=== PATIENT | female | born 1985 | race Caucasian/White ===

== ENCOUNTER 2020-08-09 14:05 | Emergency (ER) | payer SELFPAY ==
[~2020-08-09] VITALS: Ht 160 cm; Wt 70.5 kg
[2020-08-09 14:10] VITALS: Ht 160 cm; Wt 70.5 kg
[2020-08-09 14:46] LABS: CALC OSMOLALITY 278 mosm/kg (275-300); CALCIUM 8.5 mg/dL (8.5-10.1); CARBON DIOXIDE 25.5 mmol/L (21.0-32.0); CHLORIDE - SERUM 106 mmol/L (98-107); CREATININE - SERUM 0.7 mg/dL (0.6-1.3); GLUCOSE 83 mg/dL (74-106); POTASSIUM - SERUM 3.2 mmol/L (3.5-5.1); SODIUM 141 mmol/L (136-145); UREA NITROGEN 9 mg/dL (7-18); eGFR NON AFRICAN AMERICAN > 90 mL/min (90-120)
[2020-08-09 14:48] LABS: BASOPHILS 0.6 % (0-2); EOSINOPHILS 2.1 % (0-7); HEMATOCRIT 27.7 % (36.0-48.0); HEMOGLOBIN 8.2 g/dL (12-16); LYMPHOCYTES 22.6 % (15-50); MCHC 29.4 g/dL (31.0-37.0); MCV 65.7 fL (80.0-100.0); MEAN PLATELET VOLUME 7.6 fL (7.4-10.4); MONOCYTES 10.2 % (2-11); NEUTROPHILS 64.5 % (40-80); PLATELET COUNT 406 10x3/uL (130-400); RBC 4.22 10x6/uL (4.00-5.40); RDW 20.6 % (11.5-14.5); WBC 8.4 10x3/uL (4.8-10.8)
[2020-08-09 14:55] LABS: BACTERIA MANY HPF (<MOD); BILIRUBIN NEGATIVE (NEGATIVE); KETONE NEGATIVE mg/dL (< 1+); NITRITE NEGATIVE (NEGATIVE); PH 5.5 (5.0-8.0); SQUAMOUS EPITHELIAL 2 HPF (0-4); UROBILINOGEN NORMAL mg/dL (< 2); WHITE CELLS - URINE 6 HPF (0-4)
[2020-08-09 14:56] LABS: ALBUMIN 3.5 g/dL (3.4-5.0); ALKALINE PHOSPHATASE 73 U/L (30-120); ALT (SGPT) 21 U/L (10-68); BILIRUBIN - TOTAL 0.24 mg/dL (0.2-1.3); PROTEIN - SERUM 7.3 g/dL (6.4-8.2); TROPONIN-I < 0.017 ng/mL (0.000-0.060)
[2020-08-09 14:58] LABS: MCH 19.3 pg (26.0-34.0)
[2020-08-09 15:01] LABS: HCG URINE NEGATIVE (NEGATIVE)
[2020-08-09] MEDS ORDERED: FERROUS GLUCON324 MG PO (15:49)
[2020-08-09 16:05] VITALS: BP 105/88
== END 2020-08-09 16:05 | disposition home or self-care (01) ==
LOC: D.ER 14:05
PROVIDERS: Emergency Medicine
DX: R55 Syncope and collapse (principal); D64.9 Anemia, unspecified; J45.909 Unspecified asthma, uncomplicated; Z72.0 Tobacco use